=== PATIENT | female | born 1995 | race Caucasian/White ===

== ENCOUNTER 2016-10-01 11:26 | Inpatient (IN) | payer MEDICAID ==
[2016-10-01] MEDS ORDERED: Lidocaine 1% 50 ML MDV INJECT ONE (11:38)
[2016-10-01] MEDS ORDERED: Nalbuphine 20 MG/1 ML Amp IVPUSH PRN (11:38)
[2016-10-01] MEDS ORDERED: Sodium Chloride 0.9% 10 ML Syringe FLUSH PRN (11:38)
[2016-10-01] MEDS ORDERED: Oxytocin/Lactated Ringers 10 UNIT/1,000 ML BAG IV SCH ×2 (11:45→14:15)
[2016-10-01] MEDS: Lactated Ringers 1,000 ML IV SCH ×3 (12:00→15:15)
--- NOTE | 2016-10-01 12:10 | PCM.PREANE ---
Preanesthetic Assessment - Procedure Proposed Procedure: Labor Epidural - Anesthesia/Transfusion/Family Hx Anesthesia History: Prior Anesthesia Without Reaction Family History of Anesthesia Reaction: No Transfusion History: No Prior Transfusion(s) Additional History: Denies any medical history, takes no home meds - Review of Systems General: No Symptoms Pulmonary: No Symptoms Cardiovascular: No Symptoms Gastrointestinal: No Symptoms Neurological: No Symptoms Other: Reports: None - Physical Assessment NPO Status Date: 10/01/16 NPO Status Time: 08:00 O2 Sat by Pulse Oximetry: 98 Respiratory Rate: 16 Vital Signs: Last Vital Signs Temp 36.3 C 10/01/16 11:38 Pulse 100 10/01/16 11:38 Resp 16 10/01/16 11:38 BP 135/87 10/01/16 11:38 Pulse Ox 98 10/01/16 11:38 Height: 1.57 m Weight: 82.508 kg Mental Status: Alert & Oriented x3 Airway Class: Mallampati = 1 Dentition: Reports: Normal Dentition Thyro-Mental Finger Breadths: 3 Mouth Opening Finger Breadths: 3 ROM/Head Extension: Full Lungs: Clear to Auscultation, Normal Respiratory Effort Cardiovascular: Regular Rate, Regular Rhythm - Allergies Allergies/Adverse Reactions: Allergies Allergy/AdvReac Type Severity Reaction Status Date / Time amoxicillin [Amoxicillin] Allergy Hives Verified 10/01/16 11:38 - Blood Blood Available: No Product(s) Available: None - Anesthesia Plan Pre-Op Medication Ordered: None - Acknowledgements Anesthesia Type Planned: Epidural Pt an Appropriate Candidate for the Planned Anesthesia: Yes Alternatives and Risks of Anesthesia Discussed w Pt/Guardian: Yes Pt/Guardian Understands and Agrees with Anesthesia Plan: Yes PreAnesthesia Questionnaire - Past Health History Medical/Surgical History: Denies Medical/Surgical History HEENT History: Reports: Impaired 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: - SUBSTANCE USE Smoking Status *Q: Current Every Day Smoker (10cigs/day for 7 years) Second Hand Smoke Exposure: Yes Days Per Week of Alcohol Use: 0 Recreational Drug Use History: No - HOME MEDS Home Medications: Home Meds Benzonatate [Tessalon Perles] 100 mg PO TID PRN #40 cap 04/11/16 [Rx] - CURRENT (IN HOUSE) MEDS Current Meds: Current Medications Lactated Ringer's (Ringers, Lactated) 1,000 mls @ 100 mls/hr IV ASDIRECTED NETO Oxytocin/Lactated Ringer's (Pitocin In Lr 10 Units/1,000 Ml) 10 unit in 1,000 mls @ 500 mls/hr IV .CONTINUOUS NETO Nalbuphine HCl (Nubain) 10 mg IVPUSH Q2H PRN PRN Reason: Pain (moderate 4-6) Sodium Chloride (Saline Flush) 10 ml FLUSH ASDIRECTED PRN PRN Reason: Keep Vein Open Discontinued Medications Lidocaine HCl (Xylocaine 1%) 50 ml INJECT ONETIME ONE Stop: 10/01/16 11:39
[2016-10-01] MEDS ORDERED: fentaNYL 100 MCG/2 ML SDV EPIDUR PRN (12:12)
[2016-10-01] MEDS ORDERED: Ondansetron 4 MG/2 ML SDV IVPUSH PRN (12:12)
[2016-10-01] MEDS ORDERED: diphenhydrAMINE 50 MG/ML SDV IVPUSH PRN (12:12)
[2016-10-01] MEDS ORDERED: ePHEDrine 50 MG/ML SDV IVPUSH PRN (12:12)
[2016-10-01] MEDS ORDERED: Bupivacaine/fentaNYL/NS 100 ML Bag EPIDUR SCH (12:15)
[2016-10-01] MEDS ORDERED: Pneumococcal Polyvalent-23 Vaccine 0.5 ML SDV IM ONE (14:45)
[2016-10-01] MEDS ORDERED: Lanolin 100% Cream 7 GM Tube TOP PRN (18:30)
[2016-10-01] MEDS ORDERED: Benzocaine/Menthol 20%-0.5% Spray 56 GM Canister TOP PRN (18:30)
[2016-10-01] MEDS ORDERED: Witch Hazel Medicated Pads 100/Jar TOP PRN (18:30)
[2016-10-01] MEDS ORDERED: Docusate Sodium 100 MG Cap PO PRN (18:41)
[2016-10-01] MEDS: Ibuprofen 600 MG Tab PO PRN (20:06)
[2016-10-01] MEDS ORDERED: Bupivacaine 0.25% 10 ML SDV ONE (22:22)
[2016-10-02] MEDS: Acetaminophen 325 MG Tab PO PRN ×2 (00:10→12:20)
[2016-10-02] MEDS: Ibuprofen 600 MG Tab PO PRN ×3 (02:08→14:31)
--- NOTE | 2016-10-02 07:43 | PCM.DCSUM1 ---
Discharge Summary - Hospital Course Brief History: Admitted in labor. - Discharge Data Discharge Date: 10/02/16 Discharge Disposition: Home, Self-Care 01 Condition: Good - Patient Summary/Data Operative Procedure(s) Performed: Hospital Course: Admitted in active labor. Received epidural. Augmented with pitocin. AROM at complete. Meconium. at 5.48 on 10.01.16. Discharge PPD1. - Patient Instructions Diet: Usual Diet as Tolerated Activity: No Strenuous Activities Activity, Other: pelvic rest Driving: May Drive Today Showering/Bathing: May Shower Notify Provider of: Fever, Increased Pain, Swelling and Redness, Drainage, Nausea and/or Vomiting - Discharge Plan Home Medications: Home Meds Vit #108/Iron/FA [ One Tablet] 1 tab PO DAILY 10/01/16 [History ] Referrals: Mirela Sargent MD [Physician] - (6 weeks, sooner prn) - Discharge Summary/Plan Comment DC Time >30 min.: No - Patient Data Vitals - Most Recent: Last Vital Signs Temp 36.9 C 10/02/16 05:30 Pulse 72 10/02/16 05:30 Resp 18 10/02/16 05:30 BP 122/82 10/02/16 05:30 Pulse Ox 100 10/02/16 05:30 Weight - Most Recent: 82.508 kg Lab Results - Last 24 hrs: Laboratory Results - last 24 hr 10/01/16 10/02/16 Range/Units 11:56 06:32 WBC 9.44 8.30 (3.98-10.04) K/mm3 RBC 3.90 L 3.22 L (3.98-5.22) M/mm3 Hgb 12.0 9.9 L (11.2-15.7) gm/L Hct 35.5 29.7 L (34.1-44.9) % MCV 91.0 92.2 (79.4-94.8) fl MCH 30.8 30.7 (25.6-32.2) pg MCHC 33.8 33.3 (32.2-35.5) g/dl RDW Std Deviation 45.4 45.2 (36.4-46.3) fL Plt Count 280 224 (182-369) K/mm3 MPV 9.4 9.5 (9.4-12.3) fl Neut % (Auto) 72.9 H (34.0-71.1) % Lymph % (Auto) 18.2 L (19.3-51.7) % [place] % (Auto) 7.6 (4.7-12.5) % Eos % (Auto) 1.0 (0.7-5.8) Baso % (Auto) 0.1 (0.1-1.2) % Neut # (Auto) 6.88 H (1.56-6.13) K/mm3 Lymph # (Auto) 1.72 (1.18-3.74) K/mm3 [place] # (Auto) 0.72 H (0.24-0.36) K/mm3 Eos # (Auto) 0.09 (0.04-0.36) K/mm3 Baso # (Auto) 0.01 (0.01-0.08) K/mm3 Med Orders - Current: Current Medications Acetaminophen (Tylenol) 650 mg PO Q4H PRN PRN Reason: Pain Last Admin: 10/02/16 00:10 Dose: 650 mg Benzocaine/Menthol (Dermoplast Pain Relief [place]) 0 gm TOP ASDIRECTED PRN PRN Reason: Perineal Comfort Measure Last Admin: 10/01/16 21:11 Dose: 1 applic Docusate Sodium (Colace) 100 mg PO BID PRN PRN Reason: Constipation Emollient Ointment (Lansinoh Hpa) 0 gm TOP ASDIRECTED PRN PRN Reason: Sore Nipples Ibuprofen (Motrin) 600 mg PO Q6HR PRN PRN Reason: Pain Last Admin: 10/02/16 02:08 Dose: 600 mg Witch Andree (Tucks) 1 pad TOP ASDIRECTED PRN PRN Reason: Hemorrhoid pain Last Admin: 10/01/16 21:11 Dose: 1 applic Discontinued Medications Diphenhydramine HCl (Benadryl) 25 mg IVPUSH Q6H PRN PRN Reason: Pruritis Ephedrine Sulfate (Ephedrine Sulfate) 5 mg IVPUSH ASDIRECTED PRN PRN Reason: Hypotension Fentanyl (Sublimaze) 100 mcg EPIDUR Q3H PRN PRN Reason: Pain Last Admin: 10/01/16 12:36 Dose: 100 mcg Fentanyl/Bupivacaine HCl (Fentanyl/Bupivacaine/Ns 2 Mcg-0.125% 100 Ml) 100 ml EPIDUR ASDIRECTED NETO Last Admin: 10/01/16 12:37 Dose: 100 ml Lactated Ringer's (Ringers, Lactated) 1,000 mls @ 100 mls/hr IV ASDIRECTED NETO Last Admin: 10/01/16 15:15 Dose: 100 mls/hr Oxytocin/Lactated Ringer's (Pitocin In Lr 10 Units/1,000 Ml) 10 unit in 1,000 mls @ 500 mls/hr IV .CONTINUOUS NETO Last Admin: 10/01/16 17:48 Dose: 500 mls/hr Oxytocin/Lactated Ringer's (Pitocin In Lr 10 Units/1,000 Ml) 10 unit in 1,000 mls @ 12 mls/hr IV TITRATE NETO; 2 MUNITS/MIN PRN Reason: Protocol Lidocaine HCl (Xylocaine 1%) 50 ml INJECT ONETIME ONE Stop: 10/01/16 11:39 Last Admin: 10/01/16 19:11 Dose: Not Given Nalbuphine HCl (Nubain) 10 mg IVPUSH Q2H PRN PRN Reason: Pain (moderate 4-6) Ondansetron HCl (Zofran) 4 mg IVPUSH ONETIME PRN PRN Reason: Nausea/Vomiting Pneumococcal Polyvalent Vaccine (Pneumovax 23) 0.5 ml IM .ONCE ONE Stop: 10/01/16 14:46 Sodium Chloride (Saline Flush) 10 ml FLUSH ASDIRECTED PRN PRN Reason: Keep Vein Open *Q Meaningful Use (DIS) - VTE *Q VTE Criteria *Q: - Stroke *Q Stroke Criteria *Q: - AMI *Q AMI Criteria *Q:
--- NOTE | 2016-10-02 07:46 | PCM.LDHP ---
L&D History of Present Illness - General Date of Service: 10/01/16 Admit Problem/Dx: Patient Status Order with Admit Dx/Problem 10/01/16 18:30 Patient Status [ADT] Routine Admission Diagnosis/Problem Admission Diagnosis/Problem Normal labor - History of Present Illness Introduction:: 21 year old at 39w0d. Uncomfortable and painful contractions in clinic today. Changed to 5 cm. 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: Social & Family History - Family History Family Medical History: Noncontributory - Tobacco Use Smoking Status *Q: Current Every Day Smoker (10cigs/day for 7 years) Years of Tobacco use: 5 Packs/Tins Daily: 0.5 Second Hand Smoke Exposure: Yes - Caffeine Use Caffeine Use: Reports: None - Alcohol Use Days Per Week of Alcohol Use: 0 - Recreational Drug Use Recreational Drug Use: No H&P Review of Systems - Review of Systems: Review Of Systems: See Below General: Reports: No Symptoms HEENT: Reports: No Symptoms Pulmonary: Reports: No Symptoms Cardiovascular: Reports: No Symptoms Gastrointestinal: Reports: Diarrhea Genitourinary: Reports: Other (see hpi) Musculoskeletal: Reports: No Symptoms Skin: Reports: No Symptoms Psychiatric: Reports: No Symptoms Neurological: Reports: No Symptoms Hematologic/Lymphatic: Reports: No Symptoms Immunologic: Reports: No Symptoms L&D Exam - Exam Exam: See Below - Vital Signs Vital Signs: Last Vital Signs Temp 36.9 C 10/02/16 05:30 Pulse 72 10/02/16 05:30 Resp 18 10/02/16 05:30 BP 122/82 10/02/16 05:30 Pulse Ox 100 10/02/16 05:30 Weight: 82.508 kg - OB Specific Contraction Intensity: Moderate to Strong Movement: Active Heart Tones: Present Heart Tones per Min: 140 Heart Rate (FHR) Variability: Moderate (6-25 bmp) Presentation: Vertex - Victoria Score Victoria Score Cervix Position: Posterior Victoria Score Consistency: Soft Victoria Score Effacement: >80% Victoria Score Dilation: > 5 cm Victoria Score Infant's Station: -1 ,0 Victoria Score Total: 10 - Exam General: Alert, Oriented HEENT: PERRLA, Conjunctiva Clear, EACs Clear, EOMI, Hearing Intact, Mucosa Moist & [place], Nares Patent, Normal Nasal Septum, Posterior Pharynx Clear, TMs Clear Neck: Supple, Trachea Midline Lungs: Clear to Auscultation, Normal Respiratory Effort Cardiovascular: Regular Rate, Regular Rhythm GI/Abdominal Exam: Normal Bowel Sounds, Soft, Non-Tender, No Organomegaly Genitourinary: Normal external exam, Normal bimanual exam Back Exam: Normal Inspection, Full Range of Motion Extremities: Normal Inspection, Normal Range of Motion, Non-Tender, No Pedal Edema, Normal Capillary Refill Skin: Warm, Dry, Intact Neurological: Cranial Nerves Intact, Reflexes Equal Bilateral Psychiatric: Alert, Normal Affect, Normal Mood - Patient Data Lab Results Last 24 hrs: Laboratory Results - last 24 hr 10/01/16 10/02/16 Range/Units 11:56 06:32 WBC 9.44 8.30 (3.98-10.04) K/mm3 RBC 3.90 L 3.22 L (3.98-5.22) M/mm3 Hgb 12.0 9.9 L (11.2-15.7) gm/L Hct 35.5 29.7 L (34.1-44.9) % MCV 91.0 92.2 (79.4-94.8) fl MCH 30.8 30.7 (25.6-32.2) pg MCHC 33.8 33.3 (32.2-35.5) g/dl RDW Std Deviation 45.4 45.2 (36.4-46.3) fL Plt Count 280 224 (182-369) K/mm3 MPV 9.4 9.5 (9.4-12.3) fl Neut % (Auto) 72.9 H (34.0-71.1) % Lymph % (Auto) 18.2 L (19.3-51.7) % [place] % (Auto) 7.6 (4.7-12.5) % Eos % (Auto) 1.0 (0.7-5.8) Baso % (Auto) 0.1 (0.1-1.2) % Neut # (Auto) 6.88 H (1.56-6.13) K/mm3 Lymph # (Auto) 1.72 (1.18-3.74) K/mm3 [place] # (Auto) 0.72 H (0.24-0.36) K/mm3 Eos # (Auto) 0.09 (0.04-0.36) K/mm3 Baso # (Auto) 0.01 (0.01-0.08) K/mm3 Result Diagrams: 10/02/16 06:32 Problem List Initiated/Reviewed/Updated: Yes Orders Last 24hrs: Active Orders 24 hr Category Date Time Status Patient Status [ADT] Routine ADT 10/01/16 18:30 Active Activity as Tolerated [RC] .PRN Care 10/01/16 18:30 Active Heart Tones [RC] ASDIRECTED Care 10/01/16 11:45 Inactive Ready for Discharge [RC] PER UNIT ROUTINE Care 10/02/16 07:41 Ordered Vital Signs [RC] 04,12,20 Care 10/01/16 18:30 Active Regular Diet [DIET] Diet 10/01/16 Breakfast Active Acetaminophen [Tylenol] Med 10/01/16 18:41 Active 650 mg PO Q4H PRN Benzocaine/Menthol [Dermoplast Pain Relief [place]] Med 10/01/16 18:30 Active See Dose Instructions TOP ASDIRECTED PRN Docusate Sodium [Colace] Med 10/01/16 18:41 Active 100 mg PO BID PRN Ibuprofen [Motrin] Med 10/01/16 18:41 Active 600 mg PO Q6HR PRN Lanolin [Lansinoh HPA] Med 10/01/16 18:30 Active See Dose Instructions TOP ASDIRECTED PRN Witch Andree [Tucks] Med 10/01/16 18:30 Active 1 pad TOP ASDIRECTED PRN Assess Lochia [WOMSER] Per Unit Routine Oth 10/01/16 18:30 Ordered Assess Uterine Involution [WOMSER] Per Unit Routine Oth 10/01/16 18:30 Ordered Breast Pump [WOMSER] Per Unit Routine Oth 10/01/16 18:30 Ordered Heat Therapy [OM.PC] PRN Oth 10/01/16 18:30 Ordered Heat Therapy [OM.PC] PRN Oth 10/02/16 18:30 Ordered Medication Administration Instruction [OM.PC] Routine Oth 10/01/16 18:30 Ordered Perineal Care [OM.PC] Per Unit Routine Oth 10/01/16 18:30 Ordered Sitz Bath [OM.PC] Per Unit Routine Oth 10/01/16 18:30 Ordered Resuscitation Status Routine Resus Stat 10/01/16 11:38 Ordered Medication Orders Acetaminophen (Tylenol) 650 mg PO Q4H PRN PRN Reason: Pain Last Admin: 10/02/16 00:10 Dose: 650 mg Benzocaine/Menthol (Dermoplast Pain Relief [place]) 0 gm TOP ASDIRECTED PRN PRN Reason: Perineal Comfort Measure Last Admin: 10/01/16 21:11 Dose: 1 applic Docusate Sodium (Colace) 100 mg PO BID PRN PRN Reason: Constipation Emollient Ointment (Lansinoh Hpa) 0 gm TOP ASDIRECTED PRN PRN Reason: Sore Nipples Ibuprofen (Motrin) 600 mg PO Q6HR PRN PRN Reason: Pain Last Admin: 10/02/16 02:08 Dose: 600 mg Admin: 10/01/16 20:06 Dose: 600 mg Witch Andree (Tucks) 1 pad TOP ASDIRECTED PRN PRN Reason: Hemorrhoid pain Last Admin: 10/01/16 21:11 Dose: 1 applic Assessment/Plan Comment:: Active labor. Epidural after CBC/type and screen. AROM if needed. Anticipate .
[2016-10-02 14:59] VITALS: BP 122/69
--- NOTE | 2016-10-02 17:41 | PCM48HPAN ---
Post Anesthesia Note - EVALUATION WITHIN 48HRS OF ANESTHETIC Vital Signs in Normal Range: Yes Patient Participated in Evaluation: Yes Respiratory Function Stable: Yes Airway Patent: Yes Cardiovascular Function Stable: Yes Hydration Status Stable: Yes Pain Control Satisfactory: Yes Nausea and Vomiting Control Satisfactory: Yes Mental Status Recovered: Yes - COMMENTS/OBSERVATIONS Free Text/Narrative:: Patient deneis any h/a, residual numbness/tingling to LE, or back pain. Pt ambulating well and doing fine. Will be discharged later today
== END 2016-10-02 18:00 | disposition home or self-care (01) | DRG 775 ==
LOC: JD.OBCHECK 11:26 → JD.OB 11:28 → JD.OBCHECK 11:51 → JD.OB 11:51 → OBSVTOIN 17:48
PROVIDERS: ADMIT Obstetrics & Gynecology; ATTEND Obstetrics & Gynecology
PROC: 10E0XZZ Delivery of Products of Conception, External Approach (ICD-10-PCS; principal; 2016-10-01)
PROC: 10907ZC Drainage of Amniotic Fluid, Therapeutic from Products of Conception, Via Natural or Artificial Opening (ICD-10-PCS; 2016-10-01)
PROC: 00HU33Z Insertion of Infusion Device into Spinal Canal, Percutaneous Approach (ICD-10-PCS; 2016-10-01)
PROC: 3E0R3CZ (ICD-10-PCS; 2016-10-01)
PROC: 3E0234Z Introduction of Serum, Toxoid and Vaccine into Muscle, Percutaneous Approach (ICD-10-PCS; 2016-10-02)
DX: O99.334 Smoking (tobacco) complicating childbirth (principal); O77.0 Labor and delivery complicated by meconium in amniotic fluid; Z3A.39 39 weeks gestation of pregnancy; Z37.0 Single live birth; Z88.1 Allergy status to other antibiotic agents; Z23 Encounter for immunization
CPT/HCPCS: 36415; 85025; 85027; 90732; A9270-GY; J2590; J3010; J7120